=== PATIENT | female | born 1940 | race Two or more races ===

== ENCOUNTER 2022-01-03 10:13 | Outpatient (CLI) | payer MEDICARE, BC | END 2022-01-03 23:59 | disposition home or self-care (01) | LOC: LAB 10:13 | PROVIDERS: ATTEND Surgery Vascular Surgery | DX: Z01.812 Encounter for preprocedural laboratory examination (principal); Z20.822 Contact with and (suspected) exposure to COVID-19 | CPT/HCPCS: U0003; C9803 ==

== ENCOUNTER 2022-01-10 06:44 | Inpatient (IN) | payer MEDICARE, BC ==
[~2022-01-10] VITALS: Ht 152.4 cm; Wt 57.6 kg
[2022-01-10] VITALS (9 sets, daily range): BP systolic 119–142; BP diastolic 59–77
--- NOTE | 2022-01-10 07:30 | NUR ---
RN NOTE PATIENT ARRIVED AT 0730 AM, AMBULATORY. A/O X 4, VERBALLY RESPONSIVE AND ABLE TO MAKE NEEDS KNOWN. STABLE ON ROOM AIR, WITH NO S/SX OF ACUTE RESPIRATORY DISTRESS NOTED UPON ASSESSMENT. DENIES ANY PAIN AT THIS TIME. SKIN IS INTACT. NOTED WITH SOME REDNESS ON LEFT LOWER EXTREMITY AND NON-PITTING EDEMA ON LEFT FOOT. SAFETY MEASURE IN PLACE. PATIENT HAS BEEN NPO SINCE MIDNIGHT. VITAL SIGNS TAKEN AND RECORDED.
[2022-01-10] MEDS ORDERED: ANESTHESIA TRAY IN PYXIS 1 EA TRAY MC ONE (07:56)
[2022-01-10] MEDS ORDERED: IOHEXOL 50 ML IV ONE (07:56)
[2022-01-10] MEDS ORDERED: BUPIVACAINE 0.25% 75 MG/30 ML VIAL ONE (07:57)
[2022-01-10] MEDS ORDERED: LIDOCAINE HCL/MPF 1% 30 ML VIAL IJ ONE (07:57)
[2022-01-10] MEDS ORDERED: LEVO112T7 PO (08:17)
[2022-01-10] MEDS ORDERED: MULT-24 PO (08:17)
[2022-01-10] MEDS ORDERED: HYDR-4303 PO (08:17)
[2022-01-10] MEDS ORDERED: CYCL30DR EACHEYE (08:17)
[2022-01-10] MEDS ORDERED: ALEN70TA80 PO (08:17)
[2022-01-10] MEDS ORDERED: MECL-167 PO (08:17)
[2022-01-10] MEDS ORDERED: PRAV10TA40 PO (08:17)
[2022-01-10] MEDS ORDERED: CRAN425C6 PO (08:17)
[2022-01-10] MEDS ORDERED: ESTR1PAT23 TD (08:17)
[2022-01-10] MEDS ORDERED: HYDR500C2 PO (08:17)
[2022-01-10 08:58] LABS: BASOPHILS # (AUTO) 0.1 K/uL (0.0-0.2); BASOPHILS % (AUTO) 0.4 % (0.0-2.0); EOSINOPHILS % (AUTO) 1.2 % (0.0-6.0); HEMATOCRIT 57 % (33-45); LYMPHOCYTES # (AUTO) 0.9 K/uL (0.8-4.8); LYMPHOCYTES % (AUTO) 5.7 % (20.0-44.0); MEAN CORPUSCULAR HGB CONC 32 g/dl (31.0-36.0); MEAN CORPUSCULAR VOLUME 100 fL (82-100); MONOCYTES # (AUTO) 1.5 K/uL (0.1-1.30); NEUTROPHILS # (AUTO) 12.3 K/uL (1.8-8.9); NEUTROPHILS % (AUTO) 82.7 % (43.0-81.0); PLATELET COUNT (AUTO) 280 K/uL (150-450); RED BLOOD CELL COUNT(AUTO) 5.64 MIL/uL (4.0-5.2); WHITE BLOOD COUNT (AUTO) 14.9 K/uL (4.3-11.0)
[2022-01-10 09:01] LABS: CALCIUM, SERUM 8.9 mg/dL (8.5-10.1); CARBON DIOXIDE 29 mmol/L (21-32); CHLORIDE 108 mmol/L (98-107); CREATININE 0.8 mg/dL (0.6-1.3); GLUCOSE 95 mg/dL (74-106); POTASSIUM 3.9 mmol/L (3.5-5.1); SODIUM SERUM 141 mmol/L (136-145); UREA NITROGEN, BLOOD 14 mg/dL (7-18)
[2022-01-10] MEDS ORDERED: MIDAZOLAM HCL 2 MG/2ML VIAL ONE (09:04)
[2022-01-10] MEDS ORDERED: FENTANYL PF 100MCG/2ML AMPUL ONE ×2 (09:05→11:43)
[2022-01-10] MEDS ORDERED: ROCURONIUM BROMIDE 50 MG/5 ML ONE (09:05)
--- NOTE | 2022-01-10 09:10 | NUR ---
RN NOTE PATIENT PICKED UP FOR SURGERY IN STABLE CONDITION.
[2022-01-10 10:11] LABS: EOSINOPHILS % (MANUAL) 2 % (0-4); LYMPHOCYTES % (MANUAL) 6 % (16-48); MONOCYTES % (MANUAL) 10 % (0-11.0); NEUTROPHILS % (MANUAL) 82 (42-76)
[2022-01-10] MEDS ORDERED: BUPIVACAINE 0.5 % PF 150 MG/30 ML VIAL ONE (11:49)
[2022-01-10] MEDS ORDERED: HEPARIN SODIUM, PORCINE 1,000 UNIT/ML VIAL ONE (11:58)
[2022-01-10] MEDS ORDERED: HEMOSTATIC MATRIX 8 ML 1 EACH PAD MC ONE (12:05)
[2022-01-10] MEDS ORDERED: GELATIN SPONGE,ABSORBABLE 1 SPONGE SPONGE TP ONE (12:08)
[2022-01-10] MEDS ORDERED: CELLULOSE,OXIDIZED 1 EA PACK MC ONE ×2 (12:08→12:30)
[2022-01-10] MEDS ORDERED: POLYMYXIN B SULFATE 500,000 UNITS ONE (12:23)
[2022-01-10] MEDS ORDERED: protAMINE SULFATE 10 MG/ML VIAL IV ONE (12:27)
[2022-01-10] MEDS ORDERED: MORPHINE SULFATE INJ 2 MG/ML DISP.SYRIN IV PRN (13:30)
[2022-01-10] MEDS ORDERED: MORPHINE SULFATE INJ 4 MG/ML DISP.SYRIN IV PRN (13:30)
[2022-01-10] MEDS ORDERED: ONDANSETRON HCL/PF 4 MG/2 ML VIAL IVP PRN (13:30)
[2022-01-10] MEDS: IV NS 0.9% 1,000 ML IV PRN (14:21)
[2022-01-10 14:32] LABS: BASOPHILS % (AUTO) 0.2 % (0.0-2.0); EOSINOPHILS % (AUTO) 0.9 % (0.0-6.0); HEMATOCRIT 55 % (33-45); HEMOGLOBIN 17.2 g/dL (11.5-14.8); LYMPHOCYTES % (AUTO) 6.5 % (20.0-44.0); MEAN CORPUSCULAR HGB CONC 32 g/dl (31.0-36.0); MEAN CORPUSCULAR VOLUME 101 fL (82-100); MONOCYTES # (AUTO) 0.4 K/uL (0.1-1.30); MONOCYTES % (AUTO) 2.8 % (2.0-12.0); NEUTROPHILS # (AUTO) 14.2 K/uL (1.8-8.9); NEUTROPHILS % (AUTO) 89.6 % (43.0-81.0); PLATELET COUNT (AUTO) 262 K/uL (150-450); RED BLOOD CELL COUNT(AUTO) 5.41 MIL/uL (4.0-5.2); WHITE BLOOD COUNT (AUTO) 15.9 K/uL (4.3-11.0)
--- NOTE | 2022-01-10 14:50 | NUR ---
RN OPENING NOTE RECEIVED PATIENT FROM SURGERY TEAM. PATIENT ON SUPPLEMENTAL OXYGEN VIA NASAL CANULA AT 4 LITERS, O2 SATURATION AT 94%. ATTACHED TO ICU MONITORING NORMAL SINUS RYTHYM ON THE MONITOR. ARTERIAL LINE IN PLACE. IV ACCESS ON RIGHT HAND RUNNING NORMAL SALINE AT 90 MLS/HR. CARTER CATHETER DRAINING OUTPUT. SAFETY MEASURES IMPLEMENTED, WILL CONTINUE PLAN OF CARE AND ANTICIPATE NEEDS.
[2022-01-10 15:32] LABS: CALCIUM, SERUM 7.9 mg/dL (8.5-10.1); CREATININE 0.7 mg/dL (0.6-1.3); POTASSIUM 4.1 mmol/L (3.5-5.1)
[2022-01-10] MEDS: DOCUSATE SODIUM 100 MG CAPSULE PO SCH (16:27)
[2022-01-10] MEDS: ANCEF 1 GM/50 ML D5W IV SCH ×4 (17:09→20:40)
--- NOTE | 2022-01-10 18:50 | NUR ---
PATIENT IN STABLE CONDITION. SAFETY MEASURES IMPLEMENTED. SURGICAL DRESSINGS INTACT. WILL ENDORSE TO NIGHTSHIFT RN FOR CONTINUATION OF CARE.
--- NOTE | 2022-01-10 19:38 | NUR ---
DEBURR TECHNICIAN OPENING NOTES: RECEIVED PATIENT IN BED, AWAKE, ALERT/ORIENTED X4 AND VERBALLY RESPONSIVE. ON O2 AT 4L/MIN VIA N/C AND O2 SAT 96%. ARTERIAL LINE ON LEFT HAND IN PLACE. IV ACCESS ON RIGHT HAND #20G INTACT AND PATENT. NO S/S OF INFILTRATIONS. RUNNING NS AT 90CC/HR. NO C/O PAIN OR DISCOMFORT. NO ACUTE DISTRESS. CARTER CATHETER IN PLACE. DRAINING BY GRAVITY. NOTED YELLOWISH/CLEAR URINE. ALL SAFETY MEASURES IN PLACE. SIDE RAILS UP X3, BED IN LOWEST POSITION AND LOCKED. PLACE CALL LIGHT WITH IN REACH. WILL CONTINUE TO MONITOR
[2022-01-10] MEDS: MENTHOL/CETYLPYRD (CEPACOL) 1 LOZ LOZENGE MM PRN (20:40)
--- NOTE | 2022-01-10 20:41 | NUR ---
RN NOTES: GIVEN CEPACOL LOZENGE FOR C/O MILD SORE THROAT. PT TOLERATED WELL. WILL CONTINUE TO MONITOR
[2022-01-11] VITALS (14 sets, daily range): BP systolic 108–155; BP diastolic 56–86
[2022-01-11] MEDS: IV NS 0.9% 1,000 ML IV PRN ×2 (01:51→12:47)
[2022-01-11 05:57] LABS: BASOPHILS % (AUTO) 0.1 % (0.0-2.0); EOSINOPHILS % (AUTO) 0.2 % (0.0-6.0); HEMATOCRIT 44 % (33-45); LYMPHOCYTES # (AUTO) 0.5 K/uL (0.8-4.8); LYMPHOCYTES % (AUTO) 2.3 % (20.0-44.0); MEAN CORPUSCULAR HGB CONC 32 g/dl (31.0-36.0); MEAN CORPUSCULAR VOLUME 102 fL (82-100); MONOCYTES # (AUTO) 1.5 K/uL (0.1-1.30); NEUTROPHILS # (AUTO) 18.6 K/uL (1.8-8.9); NEUTROPHILS % (AUTO) 90.4 % (43.0-81.0); PLATELET COUNT (AUTO) 223 K/uL (150-450); RED BLOOD CELL COUNT(AUTO) 4.36 MIL/uL (4.0-5.2); WHITE BLOOD COUNT (AUTO) 20.6 K/uL (4.3-11.0)
[2022-01-11 06:16] LABS: CALCIUM, SERUM 7.1 mg/dL (8.5-10.1); CREATININE 0.7 mg/dL (0.6-1.3); POTASSIUM 4.2 mmol/L (3.5-5.1)
--- NOTE | 2022-01-11 06:28 | NUR ---
DROP PIT WORKER CLOSING NOTES: PATIENT IN BED, AWAKE, ALERT/ORIENTED X4 AND VERBALLY RESPONSIVE. ON O2 AT 4L/MIN VIA N/C AND O2 SAT 94%. ARTERIAL LINE ON LEFT HAND IN PLACE. IV ACCESS ON RIGHT HAND #20G INTACT AND PATENT. NO S/S OF INFILTRATIONS. RUNNING NS AT 90CC/HR. NO C/O PAIN OR DISCOMFORT. NO ACUTE DISTRESS. REMOVED CARTER CATHETER. NO BLEEDING NOTED. DUE MEDS GIVEN ORDERED. ALL SAFETY MEASURES IN PLACE. SIDE RAILS UP X3, BED IN LOWEST POSITION AND LOCKED. PLACE CALL LIGHT WITH IN REACH. WILL ENDORSE TO MORNING SHIFT NURSE.
--- NOTE | 2022-01-11 07:05 | NUR ---
EVAPORATIVE COOLER INSTALLER OPENING NOTE: RECEIVED PATIENT IN BED, AWAKE, ALERT/ORIENTED X4 AND VERBALLY RESPONSIVE. NO COMPLAINTS OF PAIN/DISCOMFORT. ON O2 AT 4L/MIN VIA N/C AND O2 SAT 97%. CLOTH WASHER READS NSR WITH BBB AT 62 BPM AT THIS TIME. ARTERIAL LINE ON LEFT HAND IN PLACE. IV ACCESS ON RIGHT HAND #20G INTACT AND PATENT, RUNNING NS AT 90CC/HR. SHE ALSO HAS LEFT HAND #22G, SALINE LOCKED. NO S/S OF INFILTRATIONS. CARTER CATHETER IN PLACE. DRAINING BY GRAVITY. NOTED YELLOWISH/CLEAR URINE. ALL SAFETY MEASURES IN PLACE. SIDE RAILS UP X3, BED IN LOWEST POSITION AND LOCKED. HOB ELEVATED AT 30 DEGREES, CALL LIGHT WITHIN REACH, BED ALARM ON. WILL CONTINUE TO MONITOR PT. FOR ANY CHANGES.
[2022-01-11] MEDS: DOCUSATE SODIUM 100 MG CAPSULE PO SCH ×2 (09:37→17:38)
[2022-01-11] MEDS: MULTIVITAMINS,THERAGRAN 1 UDTAB TABLET PO SCH (09:37)
[2022-01-11] MEDS: ENOXAPARIN SODIUM 40 MG/0.4 ML DISP.SYRIN SQ SCH (09:39)
--- NOTE | 2022-01-11 10:40 | NUR ---
TRANSPORTATION OPERATIONS MANAGER DESIRAE NOTE: TRANSFERRED PT. TO MED-SURG UNIT ROOM# 308-1. REPORT GIVEN TO LEONELA FERNANDEZ AT BEDSIDE. PATIENT REMAINS IN BED, AWAKE, ALERT/ORIENTED X4 AND VERBALLY RESPONSIVE. NO COMPLAINTS OF PAIN/DISCOMFORT. ON O2 AT 4L/MIN VIA N/C AND O2 SAT 95%. ARTERIAL LINE REMOVED, PRESSURE APPLIED AND NO S/S OF BLEEDING NOTED. IV ACCESS ON RIGHT HAND #20G INTACT AND PATENT, RUNNING NS AT 90CC/HR. SHE ALSO HAS LEFT HAND #22G, SALINE LOCKED. NO S/S OF INFILTRATIONS. CARTER CATHETER REMOVED WITH OUTPUT OF 100 ML CLEAR YELLOW URINE. ALL SAFETY MEASURES MAINTAINED: SIDE RAILS UP X3, BED IN LOWEST POSITION AND LOCKED. HOB ELEVATED AT 30 DEGREES, CALL LIGHT WITHIN REACH, BED ALARM ON. ALL MEDS, BELONGINGS, AND PT. CHART HANDED OVER TO LEONELA FERNANDEZ AT BEDSIDE. ENDORSED CONTINUITY OF CARE.
[2022-01-11] MEDS: MENTHOL/CETYLPYRD (CEPACOL) 1 LOZ LOZENGE MM PRN ×2 (10:44→13:06)
--- NOTE | 2022-01-11 10:45 | NUR ---
MS VIDEO GAMES STORYWRITER FROM ICU - RECEIVED PT IN THE MED-SURG UNIT ROOM# 308-1 VIA HER BED AT 1040 ACCOMPANIED BY LEONELA RICHTER. REPORT GIVEN AT BEDSIDE. PATIENT ALERT/ORIENTED X4 AND VERBALLY RESPONSIVE. NO COMPLAINTS OF PAIN/DISCOMFORT ON THE OPERATIVE SITE EXCEPT FOR WHEN SHE IS MOVING. ON O2 AT 4L/MIN VIA N/C WHEN RECEIVED BUT IS DOING WELL ON RA WITHOUT SOB OR DISTRESS, SATURATING AT 95%. S/P FEMORAL TO FEMORAL BYPASS, SURGICAL SITES ARE COVERED WITH DRY DRESSING WITH NO T SIGNS OF ACTIVE BLEEDING. CARTER CATHETER WAS REMOVED IN THE ICU. WITH IV ACCESS ON RIGHT HAND #20G INTACT AND PATENT, RUNNING NS AT 90CC/HR AND LEFT HAND #22G, SALINE LOCKED. NO ALL SAFETY MEASURES MAINTAINED: SIDE RAILS UP X3, BED IN LOWEST POSITION AND LOCKED. HOB ELEVATED AT 30 DEGREES, CALL LIGHT WITHIN REACH, BED ALARM ON. ALL MEDS, BELONGINGS, AND PT RECEIVED ALONG WITH THE CHART. WILL CONTINUE TO PLAN OF CARE.
[2022-01-11 11:47] LABS: BAND % (MANUAL) 8 % (0.0-5.0); LYMPHOCYTES % (MANUAL) 4 % (16-48); MONOCYTES % (MANUAL) 5 % (0-11.0); NEUTROPHILS % (MANUAL) 83 (42-76)
[2022-01-11] MEDS: HYDROCODONE/APAP 5/325MG TABLET PO PRN ×2 (15:28→22:59)
--- NOTE | 2022-01-11 15:30 | NUR ---
RN NOTES - PATIENT WOKE UP FROM A BAD DREAM, CRYING - SHE SAID IT FELT REAL AND THAT SHE FELL IN HER DREAM. PATIENT REQUEST FOR PAIN MEDICATION 5/10 PAIN SCALE IN THE GROIN AREA. GIVEN NORCO 5, 1.5 TABS ORDERED. WILL CONTINUE TO MONITOR.
[2022-01-11] MEDS ORDERED: Medication Not On Formulary EA (Cyclosporine (Restasis) 1 DROP) EACHEYE SCH (17:00)
--- NOTE | 2022-01-11 18:50 | NUR ---
MS RN CLOSING NOTES PATIENT ALERT/ORIENTED X4 AND VERBALLY RESPONSIVE. NO COMPLAINTS OF PAIN/DISCOMFORT AT THIS TIME. ON RA WITHOUT SOB OR DISTRESS, SATURATING AT 95%. S/P FEMORAL TO FEMORAL BYPASS, SURGICAL SITES ARE COVERED WITH DRY DRESSING WITH NO SIGNS OF ACTIVE BLEEDING. WITH IV ACCESS ON RIGHT HAND #20G INTACT AND PATENT, RUNNING NS AT 90CC/HR AND LEFT HAND #22G, SALINE LOCKED. ALL SAFETY MEASURES MAINTAINED: SIDE RAILS UP X3, BED IN LOWEST POSITION AND LOCKED. HOB ELEVATED AT 30 DEGREES, CALL LIGHT AND TRAY TABLE WITHIN REACH, BED ALARM ON. ENDORSED TO THE UM NURSE NURSE.
--- NOTE | 2022-01-11 21:14 | NUR ---
URINARY RETENTION Patient feels urge to void and unable to urinate, has not voided urine more that 8h post mckinnon catheter removed. Bladder scan showed 345ml. Notified CASTABLES WORKER Susan with orders to insert Urinary mckinnon catheter, place and leave in.
--- NOTE | 2022-01-11 22:18 | NUR ---
MCKINNON CATHETER Procedure explained to patient, verbalized understanding. Urinary mckinnon catheter inserted draining urine to gravity. Will monitor output.
--- NOTE | 2022-01-11 23:03 | NUR ---
GROIN PAIN Patient c/o R/L groin pain 3/10, pain described as throbbing. Incision site no bleeding. Given PRN [place] 1.5tab, will reassess pain level. .5 tab wasted and placed in RX Destroyer container with LEONELA NAJERA.
--- NOTE | 2022-01-12 06:26 | NUR ---
END OF SHIFT REPORT Patient in bed, Alert Oriented x3. IV line right hand intact, IVF infusing. Stable on room air, denies SOB. Chacho groin incision with dressing clean and dry, no bleed. Pain improved with PRN [place]. No BM during the shift. Yanez catheter care, good output 850ml. Turned and repositioned. Encouraged ambulation as tolerated. Fall precaution maintained.
[2022-01-12] MEDS: IV NS 0.9% 1,000 ML IV PRN (06:34)
[2022-01-12] MEDS: LEVOTHYROXINE SODIUM 112 MCG TABLET PO SCH (07:26)
[2022-01-12 07:33] LABS: CALCIUM, SERUM 7.9 mg/dL (8.5-10.1); CARBON DIOXIDE 22 mmol/L (21-32); CHLORIDE 109 mmol/L (98-107); CREATININE 0.7 mg/dL (0.6-1.3); GLUCOSE 100 mg/dL (74-106); POTASSIUM 3.7 mmol/L (3.5-5.1); SODIUM SERUM 139 mmol/L (136-145); UREA NITROGEN, BLOOD 15 mg/dL (7-18)
--- NOTE | 2022-01-12 07:35 | NUR ---
MS RN OPENING NOTES RECEIVED PATIENT LYING IN BED WITH HOB ELEVATED, ALERT/ORIENTED X4 WITH EPISODES OF CONFUSION. VERBALLY RESPONSIVE. WITH COMPLAINTS OF SORE FEELING ON THE RIGHT SHOULDER, OFFERED PAIN MEDICATION BUT REFUSED. ON RA COMFORTABLY WITHOUT SOB OR DISTRESS, SATURATING AT 95%. S/P FEMORAL TO FEMORAL BYPASS, SURGICAL SITES ARE COVERED WITH DRY DRESSING WITH NO SIGNS OF ACTIVE BLEEDING NOTED.WITH IV ACCESS ON RIGHT HAND #20G INTACT AND PATENT, RUNNING NS AT 90CC/HR. LEFT HAND #22G -DC'D REMOVED - NOT PATENT ANYMORE. ALL SAFETY MEASURES IN PLACE: SIDE RAILS UP X3, BED IN LOWEST POSITION AND LOCKED. HOB ELEVATED AT 30 DEGREES, CALL LIGHT AND TRAY TABLE WITHIN REACH, BED ALARM ON. WILL CONTINUE TO MONITOR THROUGHOUT MY SHIFT. Addendum: 01/12/22 at 1006 by MIGUEL AGUILAR RN PATIENT WITH CARTER CATHETER D/T URINARY RETENTION DRAINING CLEAR YELLOW URINE VIA GRAVITY WITH NO NOTED SEDIMENTS.
--- NOTE | 2022-01-12 07:40 | NUR ---
RN NOTES - MD ZAKIYA INFANTE AT BEDSIDE ORDERED FOR IVF TO BE DC'D AND FOR PATIENT TO AMBULATE TODAY WITH PT.
[2022-01-12 07:57] LABS: BASOPHILS % (AUTO) 0.2 % (0.0-2.0); EOSINOPHILS % (AUTO) 0.6 % (0.0-6.0); HEMATOCRIT 51 % (33-45); HEMOGLOBIN 16.2 g/dL (11.5-14.8); LYMPHOCYTES # (AUTO) 0.6 K/uL (0.8-4.8); LYMPHOCYTES % (AUTO) 3.1 % (20.0-44.0); MEAN CORPUSCULAR HGB CONC 32 g/dl (31.0-36.0); MEAN CORPUSCULAR VOLUME 100 fL (82-100); MONOCYTES # (AUTO) 1.6 K/uL (0.1-1.30); MONOCYTES % (AUTO) 8.8 % (2.0-12.0); NEUTROPHILS # (AUTO) 15.8 K/uL (1.8-8.9); NEUTROPHILS % (AUTO) 87.3 % (43.0-81.0); PLATELET COUNT (AUTO) 234 K/uL (150-450); RED BLOOD CELL COUNT(AUTO) 5.13 MIL/uL (4.0-5.2); WHITE BLOOD COUNT (AUTO) 18.1 K/uL (4.3-11.0)
[2022-01-12 08:00] VITALS: BP 152/57
[2022-01-12] MEDS: MULTIVITAMINS,THERAGRAN 1 UDTAB TABLET PO SCH (08:17)
[2022-01-12] MEDS: HYDROXYUREA 500 MG CAPSULE PO SCH (08:18)
[2022-01-12] MEDS: DOCUSATE SODIUM 100 MG CAPSULE PO SCH ×2 (08:18→16:23)
[2022-01-12] MEDS: ENOXAPARIN SODIUM 40 MG/0.4 ML DISP.SYRIN SQ SCH (08:22)
--- NOTE | 2022-01-12 09:05 | NUR ---
RN NOTES - PT PATIENT WITH PT SURAJ, PATIENT AMBULATING WITH WALKER - APPEARS TO BE TOLERATING THE EXERCISE, PATIENT STILL REFUSED PAIN MEDICATIONS.
--- NOTE | 2022-01-12 11:22 | NUR ---
RN NOTES - DRESSING CHANGED DRESSING NOTED WITH SCANT SEROSANGUINOUS DISCHARGES, CYRUS INTACT, NO DEHISCENCE NOTED, NO ACTIVE PLEASE. COVERED WITH NEW SURGICAL GAUZE, WILL MONITOR.
[2022-01-12] MEDS ORDERED: HYDROCODONE/APAP 10/325MG TABLET PO PRN (12:00)
--- NOTE | 2022-01-12 13:47 | NUR ---
RN NOTES - CARTER CATHETER REMOVED CARRIED OUT DR STEPHENSON'S ORDER TO REMOVE CARTER CATHETER AND OBSERVE PATIENT, IF PATIENT IS ABLE TO VOID, PATIENT IS GOOD FOR DC, IF NOT, TO RELIEVE THE BLADDER, NURSE TO DO STRAIGHT CATH. ENCOURAGED AMBULATION AND PAIN MANAGEMENT. DR INFANTE IS AWARE. GAVE PATIENT WARM COMPRESS TO APPLY OVER BLADDER AREA AND TO INCREASE FLUID INTAKE. WILL CONTINUE TO MONITOR.
--- NOTE | 2022-01-12 14:30 | NUR ---
RN NOTES - PAIN MANAGEMENT GIVEN PATIENT NORCO [address] JOCELYN WHITMORE AT 1305. SON GEREMIAS IS WITH PATIENT, PATIENT REPORTS RELIEF FOR THE FIRST TIME AND WAS ABLE TO NAP. TOLD SON THAT PATIENT HAS BEEN REFUSING PAIN MEDICATION, HE SAID TO ENCOURAGE PATIENT TO TAKE IT PT IS FORGETFUL. ACKNOWLEDGED AND WILL ENDORSE TO THE NIGHT NURSE.
--- NOTE | 2022-01-12 14:35 | NUR ---
RN NOTES - [place] PLANNING DR STEPHENSON RECOMMENDED PT TO GO HOME WITH PAIN MANAGEMENT AND HOME HEALTH. PATIENT'S SON DOESNT WANT PT TO GO HOME ALONE. I RECEIVED A CALL FROM [facility] ([phone]) REGARDING THE REFERRAL FROM DR STEPHENSON, INFORMED THE SON AND GAVE HIM THE PHONE NUMBER. INFORMED DR INFANTE OF THE PLAN, HE MENTIONED PT WANTS SNF. CALLED [facility]AL[facility] AND HAD HER SPEAK WITH THE SON REGARDING THEIR PREFERENCES. JALEN TO SEND SNF PLACEMENT REQUESTS.
[2022-01-12 16:00] VITALS: BP 126/66
--- NOTE | 2022-01-12 18:45 | NUR ---
MS RN CLOSING NOTES PATIENT LYING IN BED WITH HOB ELEVATED, ALERT/ORIENTED X4 WITH EPISODES OF CONFUSION. VERBALLY RESPONSIVE. NO REPORTS OF PAIN AT THIS MOMENT BUT ENCOURAGED PATIENT TO ACCEPT PAIN MEDICATION SHE GETS IRRITABLE AND RESTLESS WITH PAIN, PT AGREED. ON RA COMFORTABLY WITHOUT SOB OR DISTRESS, SATURATING AT 96%. SURGICAL SITES ON BILATERAL GROIN ARE COVERED WITH DRY DRESSING WITH NO SIGNS OF ACTIVE BLEEDING NOTED.WITH IV ACCESS ON RIGHT HAND #20G SL, INTACT AND PATENT. PATIENT STILL UNABLE TO PASS URINE AT THIS POINT BUT SHE SAID SHE IS TRYING, STANDING ORDER OF STRAIGHT CATH IS AVAILABLE. ALL SAFETY MEASURES IN PLACE: SIDE RAILS UP X3, BED IN LOWEST POSITION AND LOCKED. ALL NEEDS MET AND DUE MEDS PROVIDED. HOB ELEVATED AT 30 DEGREES, CALL LIGHT AND TRAY TABLE WITHIN REACH, BED ALARM ON. WILL ENDORSE TO THE STRAIGHT CUTTER NURSE.
--- NOTE | 2022-01-12 19:50 | NUR ---
MS RN OPENING NOTES PATIENT LYING IN BED AWAKE. ALERT/ORIENTED X4. ABLE TO MAKE NEEDS KNOWN. NO SOB OR DYSPNEA NOTED. HEAD OF BED ELEVATED 30 DEGREES. OXYGEN SATURATION= 93%. SURGICAL SITE DRESSINGS TO BILATERAL GROIN ARE CLEAN DRY AND INTACT. NO SIGNS OF ACTIVE BLEEDING NOTED. IV ACCESS TO RIGHT HAND #20G SL, INTACT AND PATENT. CARTER CATHETER WAS REMOVED TODAY AT 1346.AND PATIENT IS STILL UNABLE TO URINATE AT THIS TIME. STANDING ORDER FOR STRAIGHT CATH IS AVAILABLE IF NEEDED. ALL SAFETY MEASURES IN PLACE: SIDE RAILS UP X3, BED IN LOWEST POSITION AND LOCKED, CALL LIGHT AND TRAY TABLE WITHIN REACH, BED ALARM ON. WILL CONTINUE TO MONITOR.
[2022-01-12 20:00] VITALS: BP 146/68
[2022-01-12 21:30] LABS: BAND % (MANUAL) 5 % (0.0-5.0); LYMPHOCYTES % (MANUAL) 5 % (16-48); MONOCYTES % (MANUAL) 5 % (0-11.0); NEUTROPHILS % (MANUAL) 85 (42-76)
--- NOTE | 2022-01-12 22:15 | NUR ---
PATIENT DOES NOT HAVE A TELE MONITOR AND IS A MED/SURG PATIENT. IN ADDITION, SHE DOES NOT HAVE A CARTER CATHETER IN PLACE. IT WAS REMOVED AT 1346 AND PATIENT NEEDS TO URINATE ON HER OWN BEFORE SHE CAN LEAVE THE HOSPITAL.
--- NOTE | 2022-01-12 23:46 | NUR ---
PATIENT URINATED IN THE TOILET. COULD NOT MEASURE THE AMOUNT BECAUSE SHE MISSED THE HAT IN THE TOILET.
[2022-01-13] MEDS: LEVOTHYROXINE SODIUM 112 MCG TABLET PO SCH (06:49)
--- NOTE | 2022-01-13 06:59 | NUR ---
MS RN CLOSING NOTES PATIENT SLEEPING IN BED. NO S/S DYSPNEA OR SOB. BREATHING IS EVEN AND UNLABORED. SURGICAL SITE DRESSINGS ON BILATERAL GROIN ARE CLEAN, DRY AND INTACT. IV ACCESS ON RIGHT HAND #20G SL, INTACT AND PATENT. PATIENT ABLE TO URINATE ON HER OWN LAST NIGHT. ALL SAFETY MEASURES IN PLACE: SIDE RAILS UP X3, BED IN LOWEST POSITION AND LOCKED. ALL NEEDS MET AND DUE MEDS ADMINISTERED. HOB ELEVATED AT 30 DEGREES, CALL LIGHT AND TRAY TABLE WITHIN REACH, BED ALARM ON. WILL ENDORSE TO THE NEXT SHIFT FOR KIRSTEN.
--- NOTE | 2022-01-13 07:20 | NUR ---
ms rn received on bed, awake,alert,oriented x4,not in any form of distress, respirations even and unlalbored,no sob noted, s/p femoral bypass w/ incisions on bilateral groins, dry and intact. will monitor patient.
[2022-01-13 08:36] VITALS: BP 130/61
[2022-01-13] MEDS: DOCUSATE SODIUM 100 MG CAPSULE PO SCH (08:47)
[2022-01-13] MEDS: HYDROXYUREA 500 MG CAPSULE PO SCH (08:47)
[2022-01-13] MEDS: MULTIVITAMINS,THERAGRAN 1 UDTAB TABLET PO SCH (08:47)
[2022-01-13] MEDS: ENOXAPARIN SODIUM 40 MG/0.4 ML DISP.SYRIN SQ SCH (08:48)
[2022-01-13] MEDS ORDERED: HYDR-3980 PO (08:56)
--- NOTE | 2022-01-13 09:00 | NUR ---
ms smith breakfast served,due meds given,tolerated well.
--- NOTE | 2022-01-13 09:10 | NUR ---
ms rn walked w/ pt,tolerated well, w/ [facility].will be d/c today to [facility].
--- NOTE | 2022-01-13 14:50 | NUR ---
ms rn report given to [facility] by Rn Kimberly, patient ready to go.
--- NOTE | 2022-01-13 15:15 | NUR ---
ms [employer] certified internetwork expert instructions given, heplock removed, transferred to [facility] in stable condition.all needs attended.
== END 2022-01-13 15:15 | DRG 253 ==
LOC: DS 06:44 → MED 06:46 → ICU 10:18 → MED 01-11 10:37
PROVIDERS: ADMIT Internal Medicine; ATTEND Internal Medicine
PROC: 041L0JH Bypass Left Femoral Artery to Right Femoral Artery with Synthetic Substitute, Open Approach (ICD-10-PCS; principal; 2022-01-10)
PROC: B41FYZZ Fluoroscopy of Right Lower Extremity Arteries using Other Contrast (ICD-10-PCS; 2022-01-10)
DX: I70.238 Atherosclerosis of native arteries of right leg with ulceration of other part of lower leg (principal); D47.1 Chronic myeloproliferative disease; I70.92 Chronic total occlusion of artery of the extremities; L97.819 Non-pressure chronic ulcer of other part of right lower leg with unspecified severity; Z20.822 Contact with and (suspected) exposure to COVID-19; I10 Essential (primary) hypertension; E03.9 Hypothyroidism, unspecified; D75.839 Thrombocytosis, unspecified; M19.90 Unspecified osteoarthritis, unspecified site; Z96.641 Presence of right artificial hip joint; M47.816 Spondylosis without myelopathy or radiculopathy, lumbar region; Z82.49 Family history of ischemic heart disease and other diseases of the circulatory system; H91.90 Unspecified hearing loss, unspecified ear; Z79.83 Long term (current) use of bisphosphonates; Z79.899 Other long term (current) drug therapy
CPT/HCPCS: 36415; 71045-TC; 77002; 80048-TC; 85025-TC; 87081-TC; 97110-TC; 97116-TC; 97530-TC; A4338; A6209; A6253; C1768; C1769; C1894; G0378; J0330; J0690; J1100; J1644; J1650; J2250; J2270; J2405; J2704; J2720; J3010; J3490; J7030; J7060; Q9967

== ENCOUNTER → 2023-10-16 | Emergency (ER) | payer MEDICARE, BC ==
[~2023-10-16] VITALS: Ht 152.4 cm; Wt 51.7 kg
[~2023-10-16] MED LIST: ALEN70TA80 PO; CRAN425C6 PO; CYCL30DR EACHEYE; HYDR-3980 PO; HYDR500C2 PO; LEVO112T7 PO; MECL-167 PO; MULT-24 PO; PRAV10TA40 PO
[2023-10-16 11:58] LABS: BASOPHILS # (AUTO) 0.1 K/uL (0.0-0.2); BASOPHILS % (AUTO) 0.7 % (0.0-2.0); EOSINOPHILS # (AUTO) 0.1 K/uL (0.0-0.7); EOSINOPHILS % (AUTO) 0.7 % (0.0-6.0); HEMATOCRIT 41 % (33-45); HEMOGLOBIN 13.2 g/dL (11.5-14.8); LYMPHOCYTES % (AUTO) 8.2 % (20.0-44.0); MEAN CORPUSCULAR HEMOGLOBIN 34 PG (26.0-33.0); MEAN CORPUSCULAR HGB CONC 32 g/dl (31.0-36.0); MEAN CORPUSCULAR VOLUME 107 fL (82-100); MONOCYTES % (AUTO) 8.3 % (2.0-12.0); NEUTROPHILS # (AUTO) 10.3 K/uL (1.8-8.9); NEUTROPHILS % (AUTO) 82.1 % (43.0-81.0); PLATELET COUNT (AUTO) 536 K/uL (150-450); RED BLOOD CELL COUNT(AUTO) 3.86 MIL/uL (4.0-5.2); RED CELL DISTRIBUTION WIDTH 15.3 % (11.5-15.0); WHITE BLOOD COUNT (AUTO) 12.5 K/uL (4.3-11.0)
[2023-10-16 12:06] LABS: CALCIUM, SERUM 9.6 mg/dL (8.5-10.1); CARBON DIOXIDE 26 mmol/L (21-32); CHLORIDE 107 mmol/L (98-107); CREATININE 0.6 mg/dL (0.6-1.3); GLUCOSE 97 mg/dL (74-106); POTASSIUM 4.5 mmol/L (3.5-5.1); SODIUM SERUM 142 mmol/L (136-145); UREA NITROGEN, BLOOD 19 mg/dL (7-18)
[2023-10-16 12:08] LABS: ALANINE AMINOTRANSFERASE 19 U/L (12-78); ALBUMIN 3.3 g/dL (3.4-5.0); ALKALINE PHOSPHATASE 126 U/L (46-116); ASPARTATE AMINOTRANSFERASE 20 U/L (15-37); BILIRUBIN,DIRECT 0.2 mg/dL (0.0-0.2); BILIRUBIN,TOTAL 0.6 mg/dL (0.2-1.0); TOTAL PROTEIN, SERUM 6.6 g/dL (6.4-8.2)
[2023-10-16 13:20] VITALS: BP 110/78; TEMP 98.2; O2SAT 98
== END | disposition home or self-care (01) ==
LOC: ER 11:19
DX: R06.00 Dyspnea, unspecified (principal); R07.89 Other chest pain
CPT/HCPCS: 36415; 71045-TC; 80048-TC; 80076-TC; 84484-TC; 85025-TC